=== PATIENT | male | born 1955 | race Caucasian/White ===

== ENCOUNTER → 2021-04-21 09:46 | Outpatient (CLI) | payer MEDICARE, SELFPAY ==
--- NOTE | ~2021-04-21 | CT_ITS ---
EXAMINATION: CT lung screening DATE: 04/21/2021 10:09 INDICATION: Personal history of nicotine dependence, prior smoker with 40 pack year history TECHNIQUE: Computed tomography (CT) of the chest was performed without intravenous contrast. The dose -length product (DLP) was 196.40 mGy-cm. Automated exposure control and iterative reconstruction tech Tittat were employed. COMPARISON: None FINDINGS: The lungs are free acute opacities. No suspicious pulmonary nodules are identified. There i s no pleural effusion or pneumothorax. No pathologically enlarged thoracic lymph nodes are identified . The heart size is normal. Calcified pulmonary nodules and calcified right hilar and mediastinal lym ph nodes are consistent with old granulomatous disease. There is a moderate-sized sliding hiatal jarret ia. Punctate calcifications in otherwise normal appearing liver and spleen likely represent healed gr anulomatous disease. There is moderate thoracic spondylosis. There are partially imaged changes of an terior fusion in the lower cervical spine. IMPRESSION: 1. Lung-RADS category 1: Negative. Continue annual screening with noncontrast low-dose chest CT in 12 months. Reviewed, dictated and finalized at location A. RECONCILIATION SPECIALIST IMPRESSION: 1. Lung-RADS category 1: Negative. Continue annual screening with noncontrast l ow-dose chest CT in 12 months.
== END ==
DX: Z12.2 Encounter for screening for malignant neoplasm of respiratory organs (principal); Z87.891 Personal history of nicotine dependence
CPT/HCPCS: 71271

== ENCOUNTER 2021-08-11 00:05 | Day surgery (SDC) | payer MEDICARE, SELFPAY ==
[2021-07-20 14:47] VITALS: BMI 29.2
--- NOTE | 2021-08-10 16:45 | P.HP_ITS ---
History of Present Illness History of Present Illness Consent: Risks, benefits, and alternatives have been discussed and questions answered. Patient agrees to proceed with procedure. Chief complaint: neoplasm screening Narrative: Imani Serna is a 66 year old male referred for colon cancer screening. Review of Systems Review of Systems: All systems reviewed & are unremarkable except as noted in HPI and below [facility] Social History Social History Smoking status: Former smoker Tobacco type: cigarettes Alcohol intake: never Living arrangements: with family Spiritual care concerns: No Meds Home Medications and Allergies Home Medications Medication Instructions Recorded Confirmed Type amlodipine 10 mg tablet 10 mg PO DAILY 07/20/21 07/20/21 History chlorthalidone 25 mg tablet 25 mg PO DAILY 07/20/21 07/20/21 History ergocalciferol (vitamin D2) 1,250 1,250 mcg PO WEEKLY 07/20/21 07/20/21 History mcg (50,000 unit) capsule (Vitamin D2) lisinopril 40 mg tablet 40 mg PO DAILY 07/20/21 07/20/21 History omeprazole 20 mg capsule,delayed 20 mg PO DAILY 07/20/21 07/20/21 History release rosuvastatin 20 mg tablet 20 mg PO DAILY 07/20/21 07/20/21 History Allergies Allergy/AdvReac Type Severity Reaction Status Date / Time doxycycline Allergy Unknown Other Verified 08/11/21 07:42 Exam Resp: Auscultation: clear to auscultation bilaterally Cardio: Rate: regular rate Rhythm: regular rhythm GI: GI Palp: Yes Soft to palpation and No Tenderness to palpation present (GI) Assessment and Plan Assessment and plan (1) Colon cancer screening: Code(s): Z12.11 - Encounter for screening for malignant neoplasm of colon Status: Acute Plan Colonoscopy with possible biopsy or polypectomy or cautery or injection of substances.
[2021-08-11 07:43] VITALS: BP 127/72; PULSE 72; RESP 19; TEMP 36.5; O2SAT 97
[2021-08-11] MEDS: LACTATED RINGERS 1,000 ML 150 ML IV CONT (07:54)
--- NOTE | 2021-08-11 08:25 | P.PNAN_ITS ---
Anes - Initial Pre Proc Eval Procedure: Operation Date: 08/11/21 09:00 Proposed Procedures p Screening Colonoscopy - Aditya Jones MD Date/Time: 08/11/21 08:25 Surgeon: Aditya Jones MD Pre Op Diagnosis: neoplasm screening Patient Data Age: 66 Gender: M Height: 1.83 m Weight: 97.9 kg Last Vital Signs Temp 97.7 F 08/11/21 07:43 Pulse 72 08/11/21 07:43 Resp 19 08/11/21 07:43 BP 127/72 08/11/21 07:43 Pulse Ox 97 08/11/21 07:43 O2 Del Method Room Air 08/11/21 07:43 Allergies Allergy/AdvReac Type Severity Reaction Status Date / Time doxycycline Allergy Unknown Other Verified 08/11/21 07:42 Home Medications Medication Instructions Recorded Confirmed Type amlodipine 10 mg tablet 10 mg PO DAILY 07/20/21 07/20/21 History chlorthalidone 25 mg tablet 25 mg PO DAILY 07/20/21 07/20/21 History ergocalciferol (vitamin D2) 1,250 1,250 mcg PO WEEKLY 07/20/21 07/20/21 History mcg (50,000 unit) capsule (Vitamin D2) lisinopril 40 mg tablet 40 mg PO DAILY 07/20/21 07/20/21 History omeprazole 20 mg capsule,delayed 20 mg PO DAILY 07/20/21 07/20/21 History release rosuvastatin 20 mg tablet 20 mg PO DAILY 07/20/21 07/20/21 History Patient hx anesthesia problems: none Family hx anesthesia problems: none Results Review: All pre-operative results and documents have been reviewed as part of the pre- operative evaluation. [facility] Social History Social History Smoking status: Former smoker Tobacco type: cigarettes Alcohol intake: never Living arrangements: with family Spiritual care concerns: No Anes - Eval Final PreProcedure Day of Procedure 08/11/21 08:25 Patient weight: obese Heart: regular rate and rhythm Lungs: clear to auscultation Airway: Mallampati scale class II Neurological: alert and oriented Last oral intake: >/= 8 hours ASA classification: III Emergent: no Anesthetic plan: proceed Anesthesia type and monitoring: general GIVS and standard monitoring Results Review: All pre-operative results and documents have been reviewed as part of the pre- operative evaluation. Informed Consent: The patient's anesthetic plan and its attendant risks and benefits were discussed with the patient/family/POA. Questions were solicited and answers provided to the satisfaction of the patient/family/POA.
[2021-08-11 09:18] VITALS: BP 103/63; PULSE 62; RESP 13; O2SAT 94
[2021-08-11 09:28] VITALS: BP 105/70; PULSE 65; RESP 20; O2SAT 98
[2021-08-11 09:38] VITALS: BP 112/78; PULSE 67; RESP 16; O2SAT 99
== END 2021-08-11 09:54 | disposition home or self-care (01) ==
PROVIDERS: Visit Provider Internal Medicine Gastroenterology
PROC: 0DJD8ZZ Inspection of Lower Intestinal Tract, Via Natural or Artificial Opening Endoscopic (ICD-10-PCS; CPT 45378; principal; 2021-08-11 09:00)
DX: Z12.11 Encounter for screening for malignant neoplasm of colon (principal); K64.4 Residual hemorrhoidal skin tags; K64.8 Other hemorrhoids; K62.1 Rectal polyp; Z87.891 Personal history of nicotine dependence; E66.9 Obesity, unspecified; Z68.29 Body mass index [BMI] 29.0-29.9, adult
CPT/HCPCS: 45380; 88305; J2704; J7120

== ENCOUNTER 2021-10-27 16:08 | Outpatient (CLI) | payer MEDICARE, SELFPAY ==
--- NOTE | ~2021-10-27 | US_ITS ---
EXAMINATION: US aorta [facility] DATE: 10/27/2021 16:46 INDICATION: Abdominal aortic aneurysm screening with risk factors of prior smoking, hypercholesterole prasanth and hypertension TECHNIQUE: Grayscale, color Doppler, and pulsed Doppler images of the aorta and common iliac arteries were obtained. COMPARISON: None. FINDINGS: The proximal aorta measures 3.1 cm. The mid aorta measures 2.5 cm. The distal aorta measures 2.4 cm. The right common iliac artery measures 1.5 cm. The left common iliac artery measures 1.3 cm. IMPRESSION: 1. Normal caliber abdominal aorta. Reviewed, dictated and finalized at location A.
== END 2021-10-27 16:09 | disposition home or self-care (01) ==
DX: Z87.891 Personal history of nicotine dependence (principal)
CPT/HCPCS: 76706

== ENCOUNTER 2021-11-12 22:03 | Emergency (ER) | payer MEDICARE, SELFPAY ==
[2021-11-12 22:07] VITALS: BP 152/82; PULSE 88; RESP 18; TEMP 36.4; O2SAT 98
[2021-11-12 22:16] LABS: Basophils Absolute Auto 0.1 K/mm3 (0.0-0.1); Basophils Percent Auto 0.7 % (0.2-1.2); Eosinophils Absolute Auto 0.3 K/mm3 (0-0.3); Eosinophils Percent Auto 2.8 % (0-4.4); Hematocrit 45.6 % (42.0-52.0); Hemoglobin 15.4 g/dL (14.0-18.0); Immature Granulocyte Absolute 0.03 K/mm3 (0.00-0.031); Immature Granulocyte Percent A 0.3 % (0-0.5); Lymphocytes Absolute Auto 3.08 K/mm3 (0.9-3.2); Lymphocytes Percent Auto 29.9 % (18.3-44.2); Mean Corpuscular HGB Conc 33.8 g/dl (32-36); Mean Corpuscular Hemoglobin 29.7 pg (26-34); Mean Platelet Volume 9.1 fl (7.4-10.4); Monocytes Absolute Auto 0.9 K/mm3 (0.1-0.6); Monocytes Percent Auto 8.3 % (2.6-8.5); Platelet Count Result 253 k/mm3 (150-375); Red Blood Count 5.18 M/mm3 (4.6-6.20); Red Cell Distribution Width 12.7 % (11.5-14.5); White Blood Count 10.3 K/mm3 (4.5-10.0)
[2021-11-12 22:29] LABS: Alanine Aminotransferase 36 U/L (6-50); Albumin Level 4.8 g/dL (3.5-5.1); Alkaline Phosphatase 78 U/L (38-126); Anion Gap 14 mmol/L (8-16); Aspartate Amino Transferase 35 U/L (17-59); Bilirubin,Total 0.6 mg/dL (0.2-1.3); Blood Urea Nitrogen 17 mg/dL (9-20); Calcium 9.7 mg/dL (8.4-10.2); Carbon Dioxide 26 mmol/L (22-30); Chloride 103 mmol/L (98-107); Estimated CRCL calculation 77 ml/min; Estimated Glomerular Filt Rate > 60; Glucose 114 mg/dL (65-110); Potassium 3.8 mmol/L (3.4-5.0); Sodium 143 mmol/L (137-145)
[2021-11-12 22:31] LABS: Prothrombin Time 13.1 Seconds (11.1-14.7)
[2021-11-12 22:32] LABS: Partial Thromboplastin Time 30.1 SECONDS (22.3-36.8)
--- NOTE | 2021-11-13 00:44 | ED.GENADULT ---
HPI - General Adult General Chief complaint: GI Bleed Stated complaint: rectal bleeding Time Seen by Provider: 11/13/21 00:36 Source: RN notes reviewed History of Present Illness HPI narrative: Patient presents emergency room from home for rectal bleeding. Patient states symptoms began approximate hour prior to arrival states he had had a bowel movement he states abdominal was soft as he does take fiber every day. States that following his bowel movement today he did havehave some rectal bleeding states the bleeding was dark red in nature and continue to drip for approximately 45 minutes and placed a pad in his rectum he states he believes the bleeding stopped at this time. Patient states he does have a history of hemorrhoids and his last colonoscopy was a month ago by Dr. Jones. He denies any fevers or chills abdominal pain nausea vomiting or any other symptoms Related Data Home Medications Medication Instructions Recorded Confirmed amlodipine 10 mg tablet 10 mg PO DAILY 07/20/21 07/20/21 chlorthalidone 25 mg tablet 25 mg PO DAILY 07/20/21 07/20/21 ergocalciferol (vitamin D2) 1,250 1,250 mcg PO WEEKLY 07/20/21 07/20/21 mcg (50,000 unit) capsule (Vitamin D2) lisinopril 40 mg tablet 40 mg PO DAILY 07/20/21 07/20/21 omeprazole 20 mg capsule,delayed 20 mg PO DAILY 07/20/21 07/20/21 release rosuvastatin 20 mg tablet 20 mg PO DAILY 07/20/21 07/20/21 Allergies Allergy/AdvReac Type Severity Reaction Status Date / Time doxycycline Allergy Unknown Other Verified 08/11/21 07:42 Review of Systems Review of Systems: Gen.: Denies fevers or chills ENT: Denies congestion Respiratory: Denies shortness of breath or cough CV: Denies chest pain or palpitations GI: Denies abdominal pain nausea, emesis or diarrhea reports rectal bleeding Musculoskeletal: Denies back pain or muscle pain Neuro: Denies numbness, tingling, weakness or focal weakness Skin: Denies rash Except as documented, all other systems reviewed and negative [facility] Past Medical History Medical History (Updated 11/13/21 @ 00:49 by Last Russell DO) Hemorrhoids Social History Social History Smoking status: Former smoker Tobacco type: cigarettes Alcohol intake: never Spiritual care concerns: No Exam Narrative: APPEARANCE: No acute distress, nontoxic, resting in bed EYES: EOMI HEENT: Normocephalic, atraumatic, OMM RESPIRATORY: No respiratory distress Clear to auscultation bilaterally with no rhonchi wheezing or rales. CARDIOVASCULAR: Regular rate and rhythm without murmurs rubs or gallops. ABDOMINAL: Soft, nontender, nondistended, no rebound or guarding Rectal: Hemorrhoids present no active bleeding but 1 hemorrhoid does have stigmata of recent bleeding no stool in rectal MUSCULOSKELETAl: Moves all extremities. No clubbing, cyanosis or edema. NEURO: Awake and alert. Following commands, speech normal, no focal deficits SKIN:: Warm, dry. No rashes lesions or abrasions PSYCHIATRIC: Normal affect/mood, Course Course Emergency Course: Discussed with patient results of workup and diagnosis. Discussed need for follow-up with primary care, proper use of medication, and reasons to return to the emergency department. Patient understands and agrees to current treatment plan patient states he does have Preparation H at home Vital Signs Vital signs: Vital Signs Temperature 97.5 F L 11/12/21 22:07 Pulse Rate 88 11/12/21 22:07 Respiratory Rate 18 11/12/21 22:07 Blood Pressure 152/82 H 11/12/21 22:07 Pulse Oximetry 98 11/12/21 22:07 Oxygen Delivery Room Air 11/12/21 22:07 Temperature 97.5 F L 11/12/21 22:07 Pulse Rate 88 11/12/21 22:07 Respiratory Rate 18 11/12/21 22:07 Blood Pressure 152/82 H 11/12/21 22:07 Pulse Oximetry 98 11/12/21 22:07 Oxygen Delivery Room Air 11/12/21 22:07 Medical Decision Making MDM Narrative Medical decision making narrative:
[2021-11-13 01:35] VITALS: BP 132/92; PULSE 79; RESP 19; TEMP 36.8; O2SAT 97
== END 2021-11-13 01:36 | disposition home or self-care (01) ==
PROVIDERS: Emergency Provider Emergency Medicine
DX: K64.9 Unspecified hemorrhoids (principal); K62.5 Hemorrhage of anus and rectum; Z87.891 Personal history of nicotine dependence
CPT/HCPCS: 36415; 80053; 85025; 85610; 85730; 99283

== ENCOUNTER → 2022-01-11 13:34 | Outpatient (CLI) | payer MEDICARE, SELFPAY ==
--- NOTE | ~2022-01-11 | XR_ITS ---
EXAMINATION: XR shoulder LT min 2V DATE: 01/11/2022 14:18 INDICATION: Left shoulder pain. TECHNIQUE: 4 views of left shoulder were obtained. COMPARISON: None. FINDINGS: Bone alignment is normal. No fracture. There is mild osteoarthritis of glenohumeral joint a nd severe osteoarthritis of acromioclavicular joint. There are changes of anterior fusion procedure i n cervical spine. IMPRESSION: 1. Polyarticular osteoarthritis. Reviewed, dictated and finalized at location A. TIVE SERVICES DESIGNER
== END ==
PROVIDERS: PCP Family Medicine; Visit Provider Family Medicine
DX: M25.512 Pain in left shoulder (principal); M15.9 Polyosteoarthritis, unspecified
CPT/HCPCS: 73030

== ENCOUNTER → 2022-02-23 13:55 | Outpatient (CLI) | payer MEDICARE, SELFPAY ==
--- NOTE | ~2022-02-23 | MR_ITS ---
MRI of the left shoulder Technique: Axial proton-density fat-sat images, coronal proton density fat-sat and T2 fat-sat images, and sagittal T1-weighted and T2 fat-sat images were acquired. Clinical History: Pain, incomplete rotator cuff tear Findings: There is advanced degenerative changes AC joint, with small subacromial spur present. Corac oclavicular, coracoacromial, and coracohumeral ligament are intact. There is focal low to moderate grade articular surface partial thickness tearing at the distal supras pinatus tendon insertion, with superimposed severe tendinosis in this region. Area of tear probably m easures approximately 6 x 2 mm in extent. There is mild infraspinatus tendinosis, without partial or full-thickness tear. Subscapularis tendon demonstrates mild tendinosis, without tear. Tendon of the l owen head of the biceps is intact. No labral tear identified. Inferior glenohumeral ligament is intact. No effusion or degenerative change at the glenohumeral join t. There is minimal fluid in the subacromial/subdeltoid bursa. No muscle atrophy or edema. IMPRESSION: Probable 6 x 2 mm low to moderate grade articular surface partial tear of the distal supraspinatus te ndon insertion, with superimposed severe tendinosis. Mild infraspinatus and subscapularis tendinosis. Advanced AC joint degenerative change. Reviewed, dictated and finalized at location M. L DIVISION COMMANDER DEPUTY SHERIFF IMPRESSION: Probable 6 x 2 mm low to moderate grade articular surface partial tear of the d istal supraspinatus tendon insertion, with superimposed severe tendinosis. Mild infraspinatus and subscapularis tendinosis. Advanced AC joint degenerative change.
== END ==
PROVIDERS: PCP Family Medicine; Visit Provider Orthopaedic Surgery
DX: M75.112 Incomplete rotator cuff tear or rupture of left shoulder, not specified as traumatic (principal)
CPT/HCPCS: 73221

== ENCOUNTER 2022-04-30 10:01 | Outpatient (CLI) | payer MEDICARE, SELFPAY ==
--- NOTE | 2022-04-30 10:20 | ECG_ITS ---
Measurements Intervals [place] Rate: 61 P: 66 DE: 152 QRS: 13 QRSD: 110 T: 46 QT: 417 QTc: 421 Interpretive Statements SINUS RHYTHM NORMAL ELECTROCARDIOGRAM NO PREVIOUS ECG AVAILABLE FOR COMPARISON Electronically Signed On 05-01-2022 7:58:05 FARM TECHNICIAN by Edmar Reyes M.D.
[2022-04-30 11:32] LABS: Anion Gap 7 mmol/L (8-16); Blood Urea Nitrogen 15 mg/dL (9-20); Calcium 9.5 mg/dL (8.4-10.2); Carbon Dioxide 27 mmol/L (22-30); Chloride 104 mmol/L (98-107); Estimated Glomerular Filt Rate > 60; Glucose 100 mg/dL (65-110); Potassium 3.7 mmol/L (3.4-5.0); Sodium 138 mmol/L (137-145)
== END 2022-04-30 10:02 | disposition home or self-care (01) ==
PROVIDERS: PCP Family Medicine; Visit Provider Anesthesiology
DX: I10 Essential (primary) hypertension (principal); Z01.818 Encounter for other preprocedural examination
CPT/HCPCS: 36415; 80048; 93005

== ENCOUNTER 2022-05-03 00:24 | Day surgery (SDC) | payer MEDICARE, SELFPAY ==
--- NOTE | 2022-04-25 12:38 | PC.NURSE ---
Report to the Outpatient Waiting Room, entrance under the green pavilion located off [facility], at time 0830 on date __05/03/22 . Planned Procedure Time: __1030 . Time changes happen often and if your time is changed the preop area will call you the afternoon before. - You and your visitor will be asked to self-screen and do not enter if you have any COVID symptoms. - Only one visitor is requested with a max of two and NO children visitors are allowed at this time. - The patient visitor may be requested to leave or wait in car when not with patient due to distancing restrictions. - A mask is optional within the hospital at this time. Patients may have clear liquids (water, carbonated beverages, clear teas, apple juice) until 3 hours prior to surgery with a maximum of 20 ounces. - No food from midnight until time of surgery - Infants may have breast milk until 4 hours before surgery, formula 6 hours prior to surgery. - Children will be allowed to drink immediately following surgery. If applicable, please bring a bottle or sippy cup to assist with drinking. Juice, water, soda, and popsicles are readily available. For infants on formula, please bring formula the day of surgery. Pacifiers are allowed. Take the following medications with a SIP of water the morning of surgery: __NONE DO NOT STOP ANY OF YOUR OTHER PRESCRIPTION MEDICATIONS PRIOR TO SURGERY ?EXCEPT THE FOLLOWING Medications to discontinue per physician __IBUPROFEN HOLD 7 DAYS PRE OP PER DR VICENTE. LAST DOSE 04/25/22. ALL VITAMINS/SUPPLEMENTS 3 DAYS PRE OP.LAST DOSE 04/29/22 Please no make-up, nail swedish, hairspray, perfume, deodorant, or body powder the day of surgery. No jewelry (including any body piercings) or valuables the day of surgery, leave them at home. Please take a shower or bath the night before, or the morning of, surgery with an antibacterial soap. Wear comfortable, loose fitting clothing. Children are encouraged to wear pajamas. - Jewelry must be removed prior to entering the operating room. Rings and piercings that are not removed may be cut off. - The hospital will not accept responsibility for valuables. - Please leave all valuables, including medications, at home the day of surgery. If you are going home after surgery, a licensed concrete mixer truck driver must drive you home. - NO public transportation without another adult if you receive anesthesia. - We recommend that an adult stay with you for 24 hours following discharge. - We also recommend that you do not drive, make important decision, drink alcoholic beverages, or take any drugs that were not prescribed by your health care provider for at least 24 hours after your discharge time. Follow any additional instructions given to you from your surgeon. If you or anyone in your household have experienced Covid symptoms in the past week, please notify your surgeon or the nurse liaison at the phone number below for possible testing. Telephone instructions given to PATIENT'S LUCAS and asked if any additional questions and then verbalized understanding. Patient advised to call surgeon office or pre surgery nurse liaison [phone] if any additional questions.
[2022-04-25 12:51] VITALS: BMI 26.4
--- NOTE | 2022-05-02 09:25 | WPDANESEPPF ---
Anes - Initial Pre Proc Eval Procedure: Operation Date: 05/03/22 10:30 Proposed Procedures p Left Shoulder Arthroscopic Rotator Cuff Repair, with Subacromial Decompression - Burke Agee MD Date/Time: 05/02/22 09:25 Surgeon: Burke Agee MD Pre Op Diagnosis: partial tear left rotator cuff Patient Data Age: 67 Gender: M Height: 1.85 m Weight: 90.75 kg Allergies Allergy/AdvReac Type Severity Reaction Status Date / Time doxycycline Allergy Unknown Rash Verified 05/03/22 09:07 Home Medications Medication Instructions Recorded Confirmed Type amlodipine 10 mg tablet 10 mg PO DAILY 07/20/21 05/03/22 History chlorthalidone 25 mg tablet 25 mg PO DAILY 07/20/21 05/03/22 History lisinopril 40 mg tablet 40 mg PO DAILY 07/20/21 05/03/22 History omeprazole 20 mg capsule,delayed 20 mg PO DAILY 07/20/21 05/03/22 History release rosuvastatin 20 mg tablet 20 mg PO DAILY 07/20/21 05/03/22 History oxycodone 5 mg tablet 5 mg PO Q8H PRN Pain 02/15/22 05/03/22 History cholecalciferol (vitamin D3) 50 50 mcg PO HS 04/25/22 05/03/22 History mcg (2,000 unit) tablet cyanocobalamin (vitamin B-12) 500 500 mcg PO HS 04/25/22 05/03/22 History mcg tablet ibuprofen 400 mg tablet 400 mg PO Q6H PRN Pain 04/25/22 05/03/22 History potassium 99 mg tablet 99 mg PO HS 04/25/22 05/03/22 History Patient hx anesthesia problems: other (says after shoulder surgery he had damage to vocal cords and had to see ENT. Couldn't talk normal for months) Family hx anesthesia problems: none Results Review: All pre-operative results and documents have been reviewed as part of the pre-operative evaluation. [facility] Past Medical History Medical History (Updated 05/02/22 @ 09:26 by Lloyd Berger DO) Cancer of kidney 2017 Cervical vertebral fusion twice. Both in 2016 Diabetes GERD (gastroesophageal reflux disease) Hemorrhoids Hyperlipidemia Hypertension Surgical History Surgical History (Updated 05/02/22 @ 09:26 by Lloyd Berger DO) H/O arthroscopic knee surgery Left knee in 2014 Right knee in 2012 H/O prostatectomy 2011 History of cervical spinal surgery C3-5 fusion Hx of rotator cuff surgery Right shoulder. 2017 Family History Family History Other Cancer Social History Social History Smoking packs per day: 0.5 Smoking cigarettes per day: 10.0 Years smoked: 40 Smoking pack-years: 20.00 Smoking status: Former smoker Tobacco type: cigarettes Smoking end date: 03/06/13 Alcohol intake: never Substance use: never Substance use type: does not use Lack of Transportation: No Lack of Food: Never True Current Housing: I Have Housing Concerned About Future Housing: No Difficulty Paying Gas/Electric Bills: No Difficulty Paying for Meds: No Currently Unemployed: No Education: High School Diploma/GED Difficulty w/ Childcare or Family Care: No Living arrangements: with family Spiritual care concerns: No Anes - Eval Final PreProcedure Day of Procedure 05/02/22 09:25 Patient weight: overweight Heart: regular rate and rhythm Lungs: clear to auscultation Airway: Mallampati scale class II Neurological: alert and oriented Last oral intake: >/= 8 hours ASA classification: III Emergent: no Anesthetic plan: proceed Anesthesia type and monitoring: general ETT and standard monitoring Results Review: All pre-operative results and documents have been reviewed as part of the pre-operative evaluation. Informed Consent: The patient's anesthetic plan and its attendant risks and benefits were discussed with the patient/family/POA. Questions were solicited and answers provided to the satisfaction of the patient/family/POA.
[2022-05-03] VITALS (8 sets, daily range): BP systolic 96–127; BP diastolic 64–85; PULSE 61–99; RESP 11–16; TEMP 36.6–36.8; O2SAT 96–100
[2022-05-03] MEDS: LACTATED RINGERS 1,000 ML 30 ML IV CONT ×2 (09:10→13:18)
[2022-05-03] MEDS: KETOROLAC 15 MG/ML VIAL (*BKC) IV PUSH (09:15)
[2022-05-03] MEDS: ACETAMINOPHEN 500 MG TABLET 1000 MG PO (09:15)
--- NOTE | 2022-05-03 11:11 | WPDANESPNB ---
Anes - Peripheral Nerve Block Date/Time: 05/03/22 11:11 I have discussed with the patient/family/POA the placement of a peripheral nerve block for post-operative pain management, including associated risks, benefits, complications, and side effects. Alternative methods of post-operative analgesia were detailed. Questions were solicited and answers provided to the satisfaction of the patient/family/POA. Time-Out: A pre-procedural Time-Out was completed immediately before starting the procedure and confirmed: Patient Identification, Site, Procedure, Patient Position and the Availability of Requisite Equipment. Clinical Indications: Acute post-operative pain management requested by the operative surgeon. Nerve Block Insertion Note Anes-nerve block: interscalene left Patient position: supine Skin prep: chlorhexidine Needle: 22 gauge, stimulating, insulated echogenic needle. Needle length: 50 mm Technique: ultrasound Injectate: bupivacaine 0.5% with epi 5 mcg/ml (30cc- no epi) Observations: tolerated well Complications: none Procedure start time:: 1100 Procedure end time:: 1105
--- NOTE | 2022-05-03 11:11 | WPDHPUPDATE1 ---
History and Physical Update Update Date/Time: 05/03/22 11:11 History and Physical has been reviewed, including an updated exam of the patient. There are NO changes in the patient's condition. Risks, benefits, and alternatives have been discussed and questions answered. Patient agrees to proceed with procedure.
[2022-05-03] MEDS: ceFAZolin 2 GM/D5W 50 ML 2 GM/50 ML BAG IVPB (11:15)
--- NOTE | 2022-05-03 17:14 | W.PM.PROC2 ---
Procedure Note - Detailed Date of Procedure 05/03/22 Pre-op Diagnosis Partial tear left rotator cuff. Post-op Diagnosis Other (1. Partial bursal side supraspinatus rotator cuff tear 2. Subacromial impingement 3. SLAP tear type 2 ) Procedure Performed Left shoulder 1. Arthroscopic rotator cuff repair 2. Arthroscopic subacromial decompression 3. Arthroscopic biceps tenodesis 4. Arthroscopic labral debridement Surgeon Burke Agee MD Heel Curver Casie Skelton PA-C Anesthesia General and Regional ( interscalene block) Findings Low-grade bursal sided tear and minimal fraying on the undersurface articular side. Subtle degenerative appearance of the articular side but overall good remaining fibers. Small 15% rent to the superior bursal side tendon fibers at the anterior supraspinatus insertion area. This corresponded with apparent impingement on the undersurface of the acromion with significant fraying. The bursa was fairly thickened. Repair was performed with the large Regeneten graft with multiple JAN soft tissue anchors in the supraspinatus and anterior infraspinatus covering the partial-thickness tear area. Bone anchors placed laterally in the greater tuberosity bone. There was a significant type 2 slap tear which appeared unstable. This was contiguous with significant anterior labral tearing there was some mild degenerative fraying also in the posterior inferior labrum. Labrum was debrided and the biceps was repaired with a loop and tack technique with a single anchor, knotless SwiveLock, at the articular margin. Subacromial decompression with bursectomy, and acromioplasty was performed. Description of Procedure Preoperative antibiotics were given. An interscalene block was administered in the preoperative area. The patient was bought brought to the operating room. A general anesthetic was administered. The patient was carefully positioned in the beach chair position. The head and neck were carefully positioned. The non operative extremity was also carefully positioned. The shoulder was prepped and draped in the usual sterile fashion. Examination was performed. Standard posterior and anterior arthroscopic portals were established. Inflow achieved with the arthroscopic pump using saline and epinephrine. The glenohumeral joint was carefully inspected. A very notable superior labral tear was identified with unstable biceps insertion. Mild to moderate degenerative fraying of the labrum diffusely. This was treated with simple debridement. Biceps anchor was unstable thus the biceps was tagged and released. It was repaired near the articular margin with a single suture anchor using the loop and tack system from [employer]. The rotator cuff was only very mildly frayed on the articular side proximally 5%. Subtle discolored degenerative fibers, but overall it looked quite good. The upper border the subscapularis had only very low-grade partial fraying on the under surface. Superior margin of the cuff was quite good and robust. It was left insight 2. Minimal chondromalacia on the posterior superior humeral head. The glenoid was normal. Attention was turned to the subacromial space. A complete bursectomy was performed. The rotator cuff had low grade fraying on the superior surface and a fairly large area including the supraspinatus and anterior infraspinatus. One area was a little bit more advanced proximally to about 15% fairly small area. With these findings considered as well as some of the degeneration noted articularly it was elected that repair with the Regeneten graft would be optimal. This would reinforce the tendon and provide stress relief to optimize healing. Additionally a significant acromioplasty was performed as there was clear evidence of impingement. Five JAN suture anchors were placed in the soft tissues in tendon providing a very good attachment. The tendon laid quite nicely along the tendon and then off to the bone int
== END 2022-05-03 15:42 | disposition home or self-care (01) ==
PROVIDERS: PCP Family Medicine; Visit Provider Orthopaedic Surgery
PROC: (CPT 29805; principal; 2022-05-03 10:30)
DX: M75.112 Incomplete rotator cuff tear or rupture of left shoulder, not specified as traumatic (principal); M75.42 Impingement syndrome of left shoulder; M75.82 Other shoulder lesions, left shoulder; G89.18 Other acute postprocedural pain; I10 Essential (primary) hypertension; E78.5 Hyperlipidemia, unspecified; E11.9 Type 2 diabetes mellitus without complications; K21.9 Gastro-esophageal reflux disease without esophagitis; Z98.1 Arthrodesis status; Z85.528 Personal history of other malignant neoplasm of kidney; Z87.891 Personal history of nicotine dependence
CPT/HCPCS: 29827; 29828; 29826; 64415; 36415; 80048; 93005; A4565; A9270; C1713; J0690; J1100; J1170; J1885; J2250; J2370; J2405; J2704; J3010; J7120

== ENCOUNTER → 2022-12-27 09:31 | Outpatient (CLI) | payer MEDICARE, SELFPAY ==
--- NOTE | ~2022-12-27 | CT_ITS ---
CT Scan of the Chest without Contrast: Clinical Indication: Lung cancer screening, personal history of nicotine dependence Technique: Contiguous sections were acquired throughout the chest without intravenous contrast. Dose reduction technique was used on this scan by utilizing automated exposure control and iterative recon struction technique. The dose-length product (DLP) was 164.04 mGy-cm. COMPARISON: 04/21/2021 Findings: There is no evidence of any significant mediastinal, hilar or axillary lymphadenopathy. Calcified sub carinal lymph nodes are present. Moderate hiatal hernia noted. No aortic aneurysm. There is no evidence of pleural or pericardial effusion. The lungs are clear. No pulmonary nodules or infiltrates are noted. Images through the upper abdomen reveal no abnormalities. Impression: Lung RADS 1: Negative. 12 month follow-up screening CT advised. Moderate hiatal hernia. Reviewed, dictated and finalized at [facility]. Impression: Lung RADS 1: Negative. 12 month follow-up screening CT advised. Moderate hiatal hernia.
== END ==
DX: Z12.2 Encounter for screening for malignant neoplasm of respiratory organs (principal); K44.9 Diaphragmatic hernia without obstruction or gangrene; Z87.891 Personal history of nicotine dependence
CPT/HCPCS: 71271

== ENCOUNTER 2023-05-31 15:37 | Emergency (ER) | payer MEDICARE, SELFPAY ==
--- NOTE | 2023-05-31 15:47 | ED.BACK ---
HPI - Back Pain/Injury General Chief Complaint: Back Pain/Injury Stated Complaint: LOW BACK PAIN Time Seen by Provider: 05/31/23 15:47 Source: patient Mode of arrival: ambulatory Limitations: no limitations History of Present Illness HPI Narrative: Patient is a 68-year-old male that presents with left lower back pain radiating to left thigh after push mowing the lawn on Monday. Patient states it has gradually worsened each day. [id number] pain medicine is not working. Denies any numbness, tingling or weakness to the leg. Denies any loss of bowel or bladder. Related Data Home Medications Medication Instructions Recorded Confirmed amlodipine 10 mg tablet 10 mg PO DAILY 07/20/21 09/14/22 chlorthalidone 25 mg tablet 25 mg PO DAILY 07/20/21 09/14/22 lisinopril 40 mg tablet 40 mg PO DAILY 07/20/21 09/14/22 omeprazole 20 mg capsule,delayed 20 mg PO DAILY 07/20/21 09/14/22 release rosuvastatin 20 mg tablet 20 mg PO DAILY 07/20/21 09/14/22 cholecalciferol (vitamin D3) 50 50 mcg PO HS 04/25/22 09/14/22 mcg (2,000 unit) tablet cyanocobalamin (vitamin B-12) 500 500 mcg PO HS 04/25/22 09/14/22 mcg tablet ibuprofen 400 mg tablet 400 mg PO Q6H PRN Pain 04/25/22 09/14/22 potassium 99 mg tablet 99 mg PO HS 04/25/22 09/14/22 Allergies Allergy/AdvReac Type Severity Reaction Status Date / Time doxycycline Allergy Unknown Rash Verified 09/14/22 15:51 Review of Systems Review of Systems: All systems reviewed & are unremarkable except as noted in HPI and below Constitutional: Constitutional: Denies body ache(s), Denies chills, Denies fatigue, Denies fever(s), Denies headache(s), Denies malaise and Denies weakness Eyes: Eyes: Denies blurry vision, Denies irritation and Denies loss of vision ENT: Denies otalgia, Denies headache(s), Denies nasal discharge, Denies sinus pain and Denies sore throat Cardiovascular: Cardiovascular: Denies chest pain, Denies irregular heart rhythm and Denies dyspnea Respiratory: Respiratory: Denies dyspnea Gastrointestinal: Gastrointestinal: Denies abdominal pain, Denies melena, Denies hematochezia, Denies diarrhea, Denies nausea and Denies vomiting Musculoskeletal: Musculoskeletal: Reports back pain, Denies myalgias and Denies arthralgias Integumentary/Breasts: Skin/Breast: Denies pruritus and Denies rash Neurologic: Denies headache(s), Denies loss of vision and Denies weakness Psychiatric: Psychiatric: Reports no additional psychiatric complaints Endocrine: Endocrine: Denies fatigue PMFSH Past Medical History Medical History Cancer of kidney 2017 Cervical vertebral fusion twice. Both in 2016 Diabetes GERD (gastroesophageal reflux disease) Hemorrhoids Hyperlipidemia Hypertension Surgical History Surgical History H/O arthroscopic knee surgery Left knee in 2014 Right knee in 2012 H/O prostatectomy 2011 History of cervical spinal surgery C3-5 fusion History of repair of rotator cuff (~05/03/22) Left RCR W/ SAD/Arthroscopic Biceps Tenodesis and Labral Debridement Hx of rotator cuff surgery Right shoulder. 2017 Family History Family History Other Cancer Social History Social History Smoking packs per day: 0.5 Smoking cigarettes per day: 10.0 Years smoked: 40 Smoking pack-years: 20.00 Smoking status: Current every day smoker Tobacco type: cigarettes Smoking end date: 03/06/13 Alcohol intake: never Substance use: never Substance use type: does not use Lack of Transportation: No Lack of Food: Never True Current Housing: I Have Housing Concerned About Future Housing: No Difficulty Paying Gas/Electric Bills: No Difficulty Paying for Meds: No Currently Unemployed: No Education: High School Diploma/GED
[2023-05-31 15:49] VITALS: BP 135/76; PULSE 68; RESP 16; TEMP 36.8; O2SAT 99
== END 2023-05-31 16:13 | disposition home or self-care (01) ==
PROVIDERS: Emergency Provider Nurse Practitioner Family
DX: M54.32 Sciatica, left side (principal); Z87.891 Personal history of nicotine dependence; E11.9 Type 2 diabetes mellitus without complications; K21.9 Gastro-esophageal reflux disease without esophagitis; E78.5 Hyperlipidemia, unspecified; I10 Essential (primary) hypertension; Z85.528 Personal history of other malignant neoplasm of kidney; Z90.79 Acquired absence of other genital organ(s)
CPT/HCPCS: 99213; G0463

== ENCOUNTER 2023-07-29 12:51 | Emergency (ER) | payer MEDICARE, SELFPAY ==
--- NOTE | ~2023-07-29 | XR_ITS ---
EXAMINATION: XR ribs LT 2V w CXR 2V DATE: 07/29/2023 13:32 INDICATION: Left rib pain. Fall. TECHNIQUE: Frontal and lateral views of the chest and 2 views on 3 radiographs of the left ribs were obtained. COMPARISON: Chest CT 12/27/2022 FINDINGS: CHEST TWO VIEWS: There is no pneumonia, pleural effusion, or pneumothorax. The heart size is normal. There are changes of anterior fusion procedure in cervical spine. LEFT RIBS: There is no rib fracture. IMPRESSION: 1. No rib fracture. Reviewed, dictated and finalized at location [facility]. IMPRESSION: 1. No rib fracture.
--- NOTE | ~2023-07-29 | XR_ITS ---
EXAMINATION: XR wrist LT min 3V DATE: 07/29/2023 13:15 INDICATION: Left wrist pain. Fall. TECHNIQUE: 4 views of left wrist were obtained. COMPARISON: Left hand radiographs 11/29/2016 FINDINGS: Bone alignment is normal. No fracture. There is severe osteoarthritis of first carpometacar pal joint. IMPRESSION: 1. Severe osteoarthritis of first carpometacarpal joint. Reviewed, dictated and finalized at location [facility].
[2023-07-29 13:03] VITALS: BP 124/74; PULSE 74; RESP 16; TEMP 37; O2SAT 97
--- NOTE | 2023-07-29 13:17 | ED.UPPEXIN ---
HPI - Extremity Injury (Upper) General Chief Complaint: Extremity Injury, Upper Stated Complaint: Lt Wrist Pain Due to Pain Time Seen by Provider: 07/29/23 13:17 Source: patient, RN notes reviewed and old records reviewed Mode of arrival: ambulatory Limitations: no limitations History of Present Illness HPI narrative: 68-year-old [facility] wrist and left rib pain status post fall onto asphalt prior to arrival. Patient states that he tripped on his dog while exiting his vehicle. Patient denies prior injury to either area or pertinent medical history. Patient denies hitting head during fall. Patient reports that his wrist is worse with extension and rib pain is worse with palpation or deep breathing. Patient denies chest pain, shortness breath, numbness or tingling. Respirations even and nonlabored. Patient in no acute distress. Related Data Home Medications Medication Instructions Recorded Confirmed amlodipine 10 mg tablet 10 mg PO DAILY 07/20/21 07/29/23 lisinopril 40 mg tablet 40 mg PO DAILY 07/20/21 07/29/23 omeprazole 20 mg capsule,delayed 20 mg PO DAILY 07/20/21 07/29/23 release rosuvastatin 20 mg tablet 20 mg PO DAILY 07/20/21 07/29/23 cholecalciferol (vitamin D3) 50 50 mcg PO HS 04/25/22 07/29/23 mcg (2,000 unit) tablet cyanocobalamin (vitamin B-12) 500 500 mcg PO HS 04/25/22 07/29/23 mcg tablet Allergies Allergy/AdvReac Type Severity Reaction Status Date / Time doxycycline Allergy Unknown Rash Verified 07/29/23 13:27 Review of Systems Review of Systems: All systems reviewed & are unremarkable except as noted in HPI and below Constitutional: Constitutional: Reports no additional constitutional complaints Eyes: Eyes: Reports no additional eye complaints ENT: Reports system reviewed and no additional complaints, except as documented Cardiovascular: Cardiovascular: Reports no additional cardiovascular complaints, Denies chest pain and Denies dyspnea Respiratory: Respiratory: Reports as per HPI, Denies cough and Denies dyspnea Musculoskeletal: Musculoskeletal: Reports as per HPI, Reports arthralgias (left wrist) and Reports other (left rib pain) Neurologic: Reports system reviewed and no additional complaints, except as documented Psychiatric: Psychiatric: Reports no additional psychiatric complaints PMFSH Past Medical History Medical History Cancer of kidney 2017 Cervical vertebral fusion twice. Both in 2016 Diabetes GERD (gastroesophageal reflux disease) Hemorrhoids Hyperlipidemia Hypertension Surgical History Surgical History H/O arthroscopic knee surgery Left knee in 2014 Right knee in 2012 H/O prostatectomy 2011 History of cervical spinal surgery C3-5 fusion History of repair of rotator cuff (~05/03/22) Left RCR W/ SAD/Arthroscopic Biceps Tenodesis and Labral Debridement Hx of rotator cuff surgery Right shoulder. 2017 Family History Family History Other Cancer Social History Social History Smoking packs per day: 0.5 Smoking cigarettes per day: 10.0 Years smoked: 40 Smoking pack-years: 20.00 Smoking status: Current every day smoker Tobacco type: cigarettes Smoking end date: 03/06/13 Alcohol intake: never Substance use: never Substance use type: does not use Lack of Transportation: No Lack of Food: Never True Current Housing: I Have Housing Concerned About Future Housing: No Difficulty Paying Gas/Electric Bills: No Difficulty Paying for Meds: No Currently Unemployed: No Education: High School Diploma/GED Difficulty w/ Childcare or Family Care: No Living arrangements: with family Gender identity (if verbalized by the patient): Male Sexual Orientation (if
== END 2023-07-29 14:01 | disposition home or self-care (01) ==
PROVIDERS: Emergency Provider Nurse Practitioner Family
DX: S63.502A Unspecified sprain of left wrist, initial encounter (principal); S66.912A Strain of unspecified muscle, fascia and tendon at wrist and hand level, left hand, initial encounter; W01.0XXA Fall on same level from slipping, tripping and stumbling without subsequent striking against object, initial encounter; S20.212A Contusion of left front wall of thorax, initial encounter; Z87.891 Personal history of nicotine dependence; E11.9 Type 2 diabetes mellitus without complications; K21.9 Gastro-esophageal reflux disease without esophagitis; E78.5 Hyperlipidemia, unspecified; I10 Essential (primary) hypertension; Z85.528 Personal history of other malignant neoplasm of kidney; Z90.79 Acquired absence of other genital organ(s)
CPT/HCPCS: 71046; 71100; 73110; 99214; G0463

== ENCOUNTER 2023-11-15 09:14 | Emergency (ER) | payer MEDICARE, SELFPAY ==
--- NOTE | 2023-11-15 09:26 | ED.URI ---
HPI - URI/Sore Throat General Chief Complaint: Upper Respiratory Infection Stated Complaint: COVID Time Seen by Provider: 11/15/23 09:26 Source: patient, RN notes reviewed and old records reviewed Mode of arrival: ambulatory Limitations: no limitations History of Present Illness HPI Narrative: 68-year-old [facility] to [facility] for complaint body aches, headache, sore throat, chills, hot flashes, temp up to 99.4 ? since yesterday. Patient reports taking positive COVID test at home last night. Patient has attempted to treat symptoms with Tylenol with some improvement. Patient denies shortness of breath, chest pain, abdominal pain, nausea, vomiting, diarrhea, urinary changes, pertinent medical history. Patient able to tolerate fluids by mouth. Patient resting uncomfortably an exam room in no acute distress. Respirations even and nonlabored. Related Data Home Medications Medication Instructions Recorded Confirmed amlodipine 10 mg tablet 10 mg PO DAILY 07/20/21 11/15/23 lisinopril 40 mg tablet 40 mg PO DAILY 07/20/21 11/15/23 omeprazole 20 mg capsule,delayed 20 mg PO DAILY 07/20/21 11/15/23 release rosuvastatin 20 mg tablet 20 mg PO DAILY 07/20/21 11/15/23 ergocalciferol (vitamin D2) 1,000 2,000 unit PO DAILY 11/15/23 11/15/23 unit capsule Allergies Allergy/AdvReac Type Severity Reaction Status Date / Time doxycycline Allergy Unknown Rash Verified 11/15/23 09:33 Review of Systems Review of Systems: All systems reviewed & are unremarkable except as noted in HPI and below Constitutional: Constitutional: Reports as per HPI, Reports body ache(s), Reports chills, Reports excessive sweating, Reports fever(s) and Reports headache(s) Eyes: Eyes: Reports no additional eye complaints ENT: Reports as per HPI and Reports sore throat Cardiovascular: Cardiovascular: Reports no additional cardiovascular complaints, Denies chest pain and Denies dyspnea Respiratory: Respiratory: Reports no additional respiratory complaints, Denies cough and Denies dyspnea Musculoskeletal: Musculoskeletal: Reports no additional musculoskeletal complaints Neurologic: Reports system reviewed and no additional complaints, except as documented Psychiatric: Psychiatric: Reports no additional psychiatric complaints PMFSH Past Medical History Medical History Cancer of kidney 2017 Cervical vertebral fusion twice. Both in 2016 Diabetes GERD (gastroesophageal reflux disease) Hemorrhoids Hyperlipidemia Hypertension Surgical History Surgical History H/O arthroscopic knee surgery Left knee in 2014 Right knee in 2012 H/O prostatectomy 2010 History of cervical spinal surgery C3-5 fusion History of repair of rotator cuff (~05/03/22) Left RCR W/ SAD/Arthroscopic Biceps Tenodesis and Labral Debridement Hx of rotator cuff surgery Right shoulder. 2017 Family History Family History Other Cancer Social History Social History Smoking packs per day: 0.5 Smoking cigarettes per day: 10.0 Years smoked: 40 Smoking pack-years: 20.00 Smoking status: Current every day smoker Tobacco type: cigarettes Smoking end date: 03/06/13 Alcohol intake: never Substance use: never Substance use type: does not use Lack of Transportation: No Lack of Food: Never True Current Housing: I Have Housing Concerned About Future Housing: No Difficulty Paying Gas/Electric Bills: No Difficulty Paying for Meds: No Currently Unemployed: No Education: High School Diploma/GED Difficulty w/ Childcare or Family Care: No Living arrangements: with family Gender identity (if verbalized by the patient): Male Sexual Orientation (if Verbalized by the Patient): Straight or Heterosexual Spi
[2023-11-15 09:30] VITALS: BP 153/72; PULSE 84; RESP 16; TEMP 37.6; O2SAT 96
== END 2023-11-15 10:10 | disposition home or self-care (01) ==
LOC: EXPGOSH 10:17
PROVIDERS: Emergency Provider Nurse Practitioner Family
DX: U07.1 COVID-19 (principal); E11.9 Type 2 diabetes mellitus without complications; K21.9 Gastro-esophageal reflux disease without esophagitis; E78.5 Hyperlipidemia, unspecified; I10 Essential (primary) hypertension; Z85.528 Personal history of other malignant neoplasm of kidney; Z90.79 Acquired absence of other genital organ(s); F17.210 Nicotine dependence, cigarettes, uncomplicated
CPT/HCPCS: 99211; G0463

== ENCOUNTER 2024-02-08 12:40 | Outpatient (CLI) | payer MEDICARE, SELFPAY ==
--- NOTE | ~2024-02-08 | CT_ITS ---
CT Scan of the Chest without Contrast: Clinical Indication: Lung cancer screening, nicotine dependence Technique: Contiguous sections were acquired throughout the chest without intravenous contrast. Dose reduction technique was used on this scan by utilizing automated exposure control and iterative recon struction technique. The dose-length product (DLP) was 149.19 mGy-cm. COMPARISON: 12/27/2022 Findings: There is no evidence of any significant mediastinal, hilar or axillary lymphadenopathy. Calcified med iastinal lymph nodes are present. There is no evidence of pleural or pericardial effusion. Mild biapical scarring noted. Images through the upper abdomen reveal small hiatal hernia. Degenerative spondylosis of the thoracic spine noted. Impression: Lung RADS 1: Negative. 12 month follow-up screening CT advised. Reviewed, dictated and finalized at [facility]. NEUROLOGY Impression: Lung RADS 1: Negative. 12 month follow-up screening CT advised.
== END 2024-02-08 12:41 | disposition home or self-care (01) ==
LOC: MICIMG 12:41
DX: Z12.2 Encounter for screening for malignant neoplasm of respiratory organs (principal); Z87.891 Personal history of nicotine dependence
CPT/HCPCS: 71271

== ENCOUNTER 2025-02-12 11:05 | Outpatient (CLI) | payer MEDICARE, SELFPAY ==
--- NOTE | ~2025-02-12 | CT_ITS ---
EXAMINATION: CT lung screening DATE: 02/12/2025 11:26 INDICATION: Personal hx of nicotine dependence TECHNIQUE: Computed tomography (CT) of the chest was performed without intravenous contrast. Additional 3D reconstructions utilizing coronal maximum intensity projection (MIP) were performed. Automated exposure control and iterative reconstruction technique were employed. The dose-length product was 14 7.94 mGy-cm. COMPARISON: 02/08/2024 FINDINGS: Mild emphysema. Unchanged small calcified right lower lobe nodule along with calcified mediastinal and right hilar lymph nodes consistent with old granulomatous disease. No new, enlarging or noncalcified pulmonary nodules. No pneumonia, pulmonary edema or pleural effusion. Heart size is normal. Atheros clerotic coronary artery calcific lesions. No pericardial effusion. Small sliding-type hiatal hernia. Thoracic aorta is normal in caliber. No pathologically enlarged thoracic lymphadenopathy. A few small hepatic and splenic calcific lesions consistent with old granulomatous disease. Moderate thoracic spondylosis with minimal anterior wedging of a few mid thoracic vertebral bodies. C5-C7 anterior spinal fusion with anterior plate and screw fixation. IMPRESSION: 1. . Lung-RADS category 1: Negative. Continue annual screening with noncontrast low-dose chest CT in 12 months. Reviewed, dictated and finalized at location [facility]. O OFFICER
== END 2025-02-12 11:06 | disposition home or self-care (01) ==
DX: Z12.2 Encounter for screening for malignant neoplasm of respiratory organs (principal); Z87.891 Personal history of nicotine dependence
CPT/HCPCS: 71271